=== PATIENT | female | born 1975 | race Caucasian/White ===

== ENCOUNTER 2020-03-01 04:39 | Outpatient (CLI) | payer OTHER, SELFPAY ==
[2020-03-01 16:31] LABS: HCT 38.8 % (36.0-46.0); HGB 12.9 g/dL (11.2-15.7); MCH 30.7 pg (27.0-33.0); MCHC 33.2 % (32.0-36.0); MCV 92.4 fL (80-95); MPV 9.6 fL (8.0-11.0); Platelet Count 267 10^3/uL (130-400); RDW 12.3 % (11.7-14.6); RDW-SD 41.4 fL; WBC 7.69 10^3/uL (4.4-10.8)
[2020-03-01 17:41] LABS: ALT 21 U/L (14-59); AST 14 U/L (15-37); Albumin 3.8 g/dL (3.4-5.0); Alkaline Phosphatase 51 U/L (46-116); Anion Gap 5.5 mmol/L (3-11); BUN 22 mg/dL (7-18); Bilirubin, Total 0.2 mg/dL (0.2-1.0); CO2 28.5 mmol/L (21.0-32.0); CREATININE 0.69 mg/dL (0.55-1.02); Calcium 8.9 mg/dL (8.5-10.1); Calculated LDL 143 mg/dL (<100); Chloride 105 mmol/L (98-107); Cholesterol 229 mg/dL (<200); Glucose 96 mg/dL (74-106); HDL Cholesterol 62 mg/dL (40-60); Sodium 139 mmol/L (136-145); TSH (W/Ref FT4) 2.03 uIU/mL (0.36-3.74); Total Protein 6.9 g/dL (6.4-8.2); Triglyceride 120 mg/dL (<150)
== END 2020-03-01 04:59 ==
PROVIDERS: PCP Student in an Organized Health Care Education/Training Program; Visit Provider Student in an Organized Health Care Education/Training Program
DX: R53.83 Other fatigue (principal); E03.9 Hypothyroidism, unspecified; E86.0 Dehydration; Z86.2 Personal history of diseases of the blood and blood-forming organs and certain disorders involving the immune mechanism; Z13.1 Encounter for screening for diabetes mellitus; Z13.220 Encounter for screening for lipoid disorders
CPT/HCPCS: 36415; 80053; 80061; 85027; 83735; 84443

== ENCOUNTER 2020-05-08 01:02 | Outpatient (CLI) | payer OTHER, SELFPAY ==
--- NOTE | 2020-05-08 08:45 | DI.DEXA_ITS ---
EXAM: XR DEXA BONE DENSITY W/WO MARISELA CLINICAL HISTORY: High risk,VIT D DEFICIENT,FAM H/O OSTEOPOROSIS,E55.9,Z82.62 TECHNIQUE: HoloFixational C densitometer COMPARISON: No exams were available for comparison FINDINGS: The MARISELA image shows no evidence of compression fractures. Bone mineral density measurements of the lumbar spine correspond to a total T-score of 0.9, in the no rmal range. The bone mineral density measurements of the left hip correspond to a total T-score of 0 .2 and a femoral neck T-score of 0.3, in the normal range. The bone mineral density measurements of the left forearm correspond to a total T-score of 0.9, in the normal range. IMPRESSION: Normal bone mineral density.
== END 2020-05-08 01:22 ==
PROVIDERS: PCP Student in an Organized Health Care Education/Training Program; Visit Provider Student in an Organized Health Care Education/Training Program
DX: E55.9 Vitamin D deficiency, unspecified (principal); Z82.62 Family history of osteoporosis
CPT/HCPCS: 77080

== ENCOUNTER 2021-01-09 12:04 | Outpatient (CLI) | payer OTHER, SELFPAY ==
[2021-01-10 12:06] LABS: COVID-19 RT-PCR UVMMC Result Negative (Negative)
== END 2021-01-09 12:05 | disposition home or self-care (01) ==
LOC: LBO 12:04
PROVIDERS: PCP Student in an Organized Health Care Education/Training Program; Visit Provider Student in an Organized Health Care Education/Training Program
DX: Z20.822 Contact with and (suspected) exposure to COVID-19 (principal)
CPT/HCPCS: U0003

== ENCOUNTER 2021-02-27 22:03 | Outpatient (REF) | payer OTHER, SELFPAY ==
[2021-03-01 10:57] LABS: COVID-19 RT-PCR UVMMC Result Negative (Negative)
== END 2021-02-27 22:04 | disposition home or self-care (01) ==
LOC: LBN 22:03
PROVIDERS: PCP Student in an Organized Health Care Education/Training Program; Visit Provider Nurse Practitioner
DX: Z20.822 Contact with and (suspected) exposure to COVID-19 (principal); R19.5 Other fecal abnormalities
CPT/HCPCS: U0003

== ENCOUNTER 2021-02-28 10:19 | Outpatient (REF) | payer OTHER, SELFPAY ==
[2021-02-28 14:40] LABS: C Diff PCR Negative (Negative)
[2021-03-01 11:50] LABS: Campylobacter PCR Negative (Negative); Salmonella PCR Negative (Negative); Shiga Toxin PCR Negative (Negative); Shigella/Enteroinvasive Ecoli Negative (Negative)
== END 2021-02-28 10:20 | disposition home or self-care (01) ==
LOC: LBN 10:19
PROVIDERS: PCP Student in an Organized Health Care Education/Training Program; Visit Provider Nurse Practitioner
DX: R19.5 Other fecal abnormalities (principal)
CPT/HCPCS: 87493; 87505; 87177

== ENCOUNTER 2021-07-26 00:43 | Outpatient (CLI) | payer OTHER, SELFPAY ==
--- NOTE | 2021-07-26 07:00 | DI.RAD_ITS ---
Exam(s) XR SHOULDER LT COMPLETE 2+V EXAM: XR SHOULDER LT COMPLETE 2+V CLINICAL HISTORY: evaluate spacing r/o bony path,lt shoulder and ac joint pain,m25.512,. TECHNIQUE: 2D digital imaging was performed of the left shoulder. Five images were obtained. AP, G rashey, Y-view and axillary views were obtained. COMPARISON: No exams were available for comparison FINDINGS: BONES: No acute fracture is present. No bony destructive lesion is seen. JOINTS: No dislocation present. SOFT TISSUE: Normal. IMPRESSION: Unremarkable radiographs of the left shoulder. DATA REPOSITORY: RADIATION DOSE DELIVERED:
== END 2021-07-26 01:03 ==
PROVIDERS: PCP Student in an Organized Health Care Education/Training Program; Visit Provider Student in an Organized Health Care Education/Training Program
DX: M25.512 Pain in left shoulder (principal); M75.42 Impingement syndrome of left shoulder
CPT/HCPCS: 73030

== ENCOUNTER 2021-09-13 02:49 | Outpatient (CLI) | payer OTHER, SELFPAY ==
[2021-09-13 09:14] LABS: HCT 37.2 % (36.0-46.0); HGB 12.2 g/dL (11.2-15.7); MCH 30.2 pg (27.0-33.0); MCHC 32.8 % (32.0-36.0); MCV 92.1 fL (80-95); MPV 9.7 fL (8.0-11.0); Platelet Count 223 10^3/uL (130-400); RBC 4.04 10^6/uL (3.93-5.22); RDW 12.4 % (11.7-14.6); RDW-SD 41.9 fL; WBC 5.12 10^3/uL (4.4-10.8)
[2021-09-13 10:39] LABS: ALT 20 U/L (14-59); AST 11 U/L (15-37); Albumin 3.8 g/dL (3.4-5.0); Alkaline Phosphatase 40 U/L (46-116); Anion Gap 12.9 mmol/L (3-11); BUN 19 mg/dL (7-18); Bilirubin, Total 0.4 mg/dL (0.2-1.0); CO2 23.1 mmol/L (21.0-32.0); CREATININE 0.6 mg/dL (0.55-1.02); Calcium 8.5 mg/dL (8.5-10.1); Calculated LDL 106 mg/dL (<100); Chloride 105 mmol/L (98-107); Cholesterol 184 mg/dL (<200); Glucose 84 mg/dL (74-106); HDL Cholesterol 67 mg/dL (40-60); Potassium 3.9 mmol/L (3.5-5.1); Sodium 141 mmol/L (136-145); TSH (W/Ref FT4) 2.65 uIU/mL (0.36-3.74); Total Protein 6.7 g/dL (6.4-8.2); Triglyceride 58 mg/dL (<150)
[2021-09-13 13:29] LABS: Lab Add On Test DONE
[2021-09-13 13:43] LABS: Total Iron Binding Capacity 283 ug/dL (250-450)
[2021-09-13 13:57] LABS: Ferritin 16 ng/mL (8-252)
== END 2021-09-13 02:50 | disposition home or self-care (01) ==
LOC: LBO 02:49
PROVIDERS: PCP Student in an Organized Health Care Education/Training Program; Visit Provider Student in an Organized Health Care Education/Training Program
DX: E03.9 Hypothyroidism, unspecified (principal); R53.83 Other fatigue; R63.4 Abnormal weight loss; E46 Unspecified protein-calorie malnutrition; E55.9 Vitamin D deficiency, unspecified; D64.9 Anemia, unspecified; N93.8 Other specified abnormal uterine and vaginal bleeding; Z13.220 Encounter for screening for lipoid disorders; Z86.2 Personal history of diseases of the blood and blood-forming organs and certain disorders involving the immune mechanism
CPT/HCPCS: 36415; 80053; 80061; 82306; 85027; 82728; 83550; 84443

== ENCOUNTER 2021-09-27 00:36 | Outpatient (CLI) | payer OTHER, SELFPAY ==
--- NOTE | 2021-09-27 13:58 | DI.US_ITS ---
APPROVED REPORT EXAM: Comprehensive 2D, Doppler, and color-flow Echocardiogram Patient Location: Out-Patient Vocational Aide: Chantelle Wang RDCS (AE) Indications: Chest pain, HTN Other Information Study Quality: Adequate Conclusion Normal left ventricular wall thickness and chamber size. Estimated ejection fraction is 60%. Wall m otion is normal Normal right ventricular size and systolic function Both atria are normal in size There is no structural or hemodynamically significant valvular disease Estimated right ventricular systolic pressure is 21 mmHg Wall motion Left Ventricle The left ventricle is normal size. The left ventricular systolic function is normal. The left ventric ular ejection fraction is within the normal range. There is normal left ventricular wall thickness. T here is normal LV segmental wall motion. There is no ventricular septal defect visualized. LVEF is 60 %. Right Ventricle The right ventricle is normal size. The right ventricular systolic function is normal. The RVSP is 20 .7 mmHg. Atria The left atrium size is normal. The right atrium size is normal. The interatrial septum is intact wit h no evidence for an atrial septal defect. Aortic Valve The aortic valve is normal in structure. Aortic valve is trileaflet. There is no aortic valvular sten osis. No aortic regurgitation is present. Mitral Valve The mitral valve is normal in structure. No evidence of mitral valve stenosis. Trace to mild mitral r egurgitation. Tricuspid Valve The tricuspid valve is normal in structure. There is no tricuspid valve stenosis. Trace to mild tricu spid regurgitation. Pulmonic Valve The pulmonary valve is normal in structure. There is no pulmonic valvular stenosis. There is no pulmo chandu valvular regurgitation. Great Vessels The aortic root is normal in size. Ascending aorta is not well visualized. Aortic arch is normal in c aliber. IVC is normal in size and collapses >50% with inspiration. Pericardium There is no pericardial effusion. 2D Dimensions IVSD d PLAX 0.80 cm F: 0.6-1.0 LV Vol A2C d MOD 95.1 mL LVPW d PLAX 0.85 cm F: 0.6 - 1.0 LV Vol A4C d MOD 101.8 mL LVID d PLAX 4.50 cm F: 3.8 - 5.2 LA vol/ BSA A2C s A-L 32.0 mL/m2 LVDs 3.00 cm F: 2.2 - 3.5 LA vol/ BSA A4C s A-L 25.0 mL/m2 Ao Root d 2.59 cm F: 2.7 - 3.3 LA Vol/ BSA Biplane s A-L 29.9 mL/m2 RA Area A4C 14.02 cm2 LA Area A4C s MOD 16.66 cm2 RA Vol/ BSA A4C s A-L 19.6 mL/m2 LA Area A2C s MOD 17.85 cm2 LV EF Teichholz 61.5 % LV EF A4C MOD 60.2 % LVEF (Mckeon's) 58.35 % F: 54 - 74 LV EF A2C MOD 58.1 % LV Volume 77.13 mL F: 46 - 106 LV EF Biplane MOD 58.4 % LV Volume Index 43.57 mL/m2 F: 29 - 61 SV 57.54 mL LV Vol Biplane MOD 98.6 mL SV Index 32.47 mL/m2 FS 32.80 % M-Mode TAPSE 2.03 cm (M/F) >1.7 LV Diastology MV E' medial 0.096 (>0.07 m/s) E/A Ratio 1.2 LV E/e MED 5.75 (<14) MV E Vmax 0.55 (0.4-1.3 m/s) MV E' lateral 0.138 (>0.1 m/s) MV A Vmax 0.45 (0.4-1.3 m/s) LV E/e LAT 4.00 (<14) MV E/A Ratio 1.22 MV E/E' medial 5.78 MV E/E' lateral 4.02 Aortic Valve LVOT Area 3.08 cm2 AoV Area Vmax 2.59 cm2 LVOT Vmax 1.16 m/s AoV Area/ BSA (Vmax) 1.46 cm2/m2 LVOT Mean Ceasar. 0.71 m/s COLTON Mean Ceasar. 2.26 cm2 LVOT Peak Grad 5.4 mmHg COLTON Mean Ceasar. Index 1.27 cm2/m2 LVOT Mean Grad 2.4 mmHg LVOT VTI 0.235 m LVOT Diam s 1.95 cm AoV Vmax 1.38 m/s Velocity Ratio 0.84 AoV Mean Ceasar. 0.97 m/s AoV Peak Grad 7.6 mmHg LVOT SV 72.50 mL AoV Mean Grad 4.0 mmHg AoV VTI 0.250 m AoV Area VTI 2.91 cm2 AoV Area/ BSA (VTI) 1.64 cm/m2 Mitral Valve MV DT 242 (160-240 msec) MV PHT 70 msec MV Area PHT 3.14 cm2 Pulmonary Valve PV Vmax 0.92 (0.5-1.5 m/s) RVOT Peak Gr. 1.31 mmHg PV Peak Grad 3.4 mmHg RVOT Mean Gr. 0.60 mmHg PV Mean Grad 1.7 mmHg RVOT VTI 0.115 m PV VTI 0.188 m RVOT Vmax 0.57 m/s Tricuspid Valve TR Peak Grad 17.6 mmHg TR Vmax 2.10 m/s RA Pressure 3.00 mmHg RVSP (TR) 20.7 mmHg
== END 2021-09-27 00:56 ==
PROVIDERS: PCP Student in an Organized Health Care Education/Training Program; Visit Provider Nurse Practitioner
DX: I10 Essential (primary) hypertension (principal); R07.89 Other chest pain
CPT/HCPCS: 93306

== ENCOUNTER 2022-01-03 11:13 | Outpatient (REF) | payer OTHER, SELFPAY ==
[2022-01-05 14:15] LABS: COVID-19 RT-PCR UVMMC Result Positive (Negative)
== END 2022-01-03 11:14 | disposition home or self-care (01) ==
LOC: LBN 11:13
PROVIDERS: PCP Student in an Organized Health Care Education/Training Program; Visit Provider Family Medicine
DX: Z20.822 Contact with and (suspected) exposure to COVID-19 (principal)
CPT/HCPCS: U0003

== ENCOUNTER 2023-10-09 10:35 | Outpatient (CLI) | payer OTHER, SELFPAY ==
[2023-10-09 10:55] LABS: Hemoglobin A1C 5.5 % (<5.7)
[2023-10-09 11:00] LABS: Anion Gap 8.6 mmol/L (3-11); BUN 17 mg/dL (7-18); CO2 29.4 mmol/L (21.0-32.0); CREATININE 0.7 mg/dL (0.55-1.02); Calculated LDL 139 mg/dL (<100); Chloride 103 mmol/L (98-107); Cholesterol 236 mg/dL (<200); Estimated GFR 106.62 (mL/min/1.73m2); Glucose 93 mg/dL (74-106); HDL Cholesterol 88 mg/dL (40-60); Potassium 3.9 mmol/L (3.5-5.1); Sodium 141 mmol/L (136-145); TSH (W/Ref FT4) 4.43 uIU/mL (0.36-3.74); Triglyceride 48 mg/dL (<150)
[2023-10-09 11:20] LABS: FREE T4 0.84 ng/dL (0.76-1.46)
[2023-10-09 11:48] LABS: Vitamin D 25 Total 13.3 ng/mL (30-100)
== END 2023-10-09 10:36 | disposition home or self-care (01) ==
LOC: LBO 10:35
PROVIDERS: PCP Student in an Organized Health Care Education/Training Program; Visit Provider Student in an Organized Health Care Education/Training Program
DX: Z83.49 Family history of other endocrine, nutritional and metabolic diseases (principal); E03.9 Hypothyroidism, unspecified; U07.1 COVID-19; Z13.220 Encounter for screening for lipoid disorders
CPT/HCPCS: 36415; 80048; 80061; 82306; 83036; 84439; 84443

== ENCOUNTER 2024-01-26 09:48 | Outpatient (CLI) | payer OTHER, SELFPAY ==
[2024-01-26 10:37] LABS: TSH (W/Ref FT4) 3.48 uIU/mL (0.36-3.74)
== END 2024-01-26 09:49 | disposition home or self-care (01) ==
LOC: LBO 09:49
PROVIDERS: PCP Student in an Organized Health Care Education/Training Program; Visit Provider Student in an Organized Health Care Education/Training Program
DX: R79.89 Other specified abnormal findings of blood chemistry (principal)
CPT/HCPCS: 36415; 84443